=== PATIENT | female | born 2000 | race Caucasian/White ===

== ENCOUNTER 2025-09-07 13:35 | Emergency (ER) | payer OTHER, SELFPAY ==
[2025-09-07 13:47] VITALS: BP 115/80
[2025-09-07 13:54] LABS: Urine Character Clear (Clear)
[2025-09-07 14:07] LABS: Urine Red Blood Cell 0-2 /HPF (0-2)
--- NOTE | 2025-09-07 15:22 | ED.GENMED ---
History of Present Illness
General
Chief Complaint: Urinary Symptoms
Time Seen by Provider: 09/07/25 15:09
Nursing documentation reviewed up to this point in time: agreed with
History of Present Illness
History of Present Illness:
25-year-old female presents the ER for evaluation of dysuria, urinary frequency and back discomfort which have been ongoing for the past 3 days. Patient was seen in urgent care and initiated on ciprofloxacin. She has also been using Pyridium with
minimal change in her symptoms. She states that she was awakened early this morning with severe pain and feeling of spasm in her bladder. Patient states that she has been on antibiotics several times in the last few months due to recurrent
symptoms which she relates to urinary tract infection. This week was the first time she saw a in person provider-her previous prescriptions for Bactrim had been done via [facility]. Patient was also seen at [facility] and had her
IUD removed recently-she states that they also checked her for STIs at that time but was not advised of any positive test results. She denies vaginal discharge or dyspareunia. She had ureteral surgery when she was very young. She denies fevers.
She has been using ibuprofen intermittently for discomfort. She reports that she does not feel that she has been drinking much fluid and was feeling very nauseated when her pain was severe earlier this morning. No nausea currently. Pain was
present in the suprapubic region only.
Review of Systems
Review of Systems
Allergies reviewed?: Yes
Phy Exam
Physical Exam
Physical Exam:
Patient is awake, alert, appears in no acute distress, head is NCAT, PERRL, EOMI mucous membranes moist, conjunctiva pink, heart regular rate and rhythm without murmurs or ectopy, lungs are clear to auscultation without wheezes rales or rhonchi, no
JVD, abdomen is soft and nontender on palpation, negative CVA tenderness, extremities without edema, GCS is 15
Sepsis
Sepsis Screening
Sepsis Assessment: Sepsis Ruled Out
Sepsis Screen
Sepsis Screen: Sepsis Ruled Out
Date: 09/07/25
Time: 17:08
Course
Orders/Labs/Results
Orders:
Orders
09/07/25 13:46
Urinalysis Reflex To Culture Urgent
Date Specimen was Collected: 09/07/25
Time Specimen was Collected: 13:39
Urine Microscopic Reflex Cult Urgent
Urine Culture Urgent
SHLOMO Source: U
Specimen Description:
Date Specimen was Collected: 09/07/25
Time Specimen was Collected: 13:39
09/07/25 15:19
0.9% Sodium Chloride 1000 ml [Nss] 1,000 ml IV BOLUS
Test Result ONCE
09/07/25 15:20
CefTRIAXone [Rocephin] 1,000 mg IV NOW STA
09/07/25 15:22
Renal Only US [US Renal Only W/O Bladder] Urgent
Comment:
Reason For Exam: dysuria
09/07/25 15:33
Add On- LAB Urgent
Tests Added?: urine hcg qualitative
09/07/25 15:46
Basic Metabolic Panel Urgent
Complete Blood Count/With Diff Urgent
HCG, Serum Qualitative Screen Urgent
Abnormal Lab Results
09/07/25 09/07/25
13:46 15:46
RBC 4.00 L 10^6/uL
(4.20-5.40)
MCHC 32.2 L g/dL
(33.0-37.0)
MPV 12.0 H fL
(7.4-10.4)
Absolute Monos (auto) 0.7 H 10^3/uL
(0.1-0.6)
Sodium 134 L mmol/L
(135-145)
Urine Ketones 1+ A
(Negative)
Ur Occult Blood Reflex 2+ A
(Negative)
Urine Nitrite (Reflex) Positive A
(Negative)
Urine Bilirubin 3+ A
(Negative)
Urine Urobilinogen 3+ A
(Neg - 1+)
Leukocyte Esterase Rfl 2+ A
(Negative)
Urine WBC (Reflex) 11-15 A /HPF
(0-5)
Urine Bacteria (Reflex) Few A
(Negative)
Urine Albumin (Reflex) 2+ A
(Neg - Trace)
09/07/25 15:46
09/07/25 15:46
Urinalysis concerning for infection
Labs are otherwise reassuring.
Vital Signs
Initial and Last Documented VS:
Initial Vital Signs
Temp Pulse Resp BP Pulse Ox
98.4 F 106 18 115/80 97
09/07/25 13:47 09/07/25 13:47 09/07/25 13:47 09/07/25 13:47 09/07/25 13:47
Last Documented Vital Signs
Temp Pulse Resp BP Pulse Ox
98.4 F 106 18 115/80 97
09/07/25 13:47 09/07/25 13:47 09/07/25 13:47 09/07/25 13:47 09/07/25 15:22
MDM/Problems Addressed
Differential Diagnosis Includes:
Differential diagnosis considered but not limited to UTI, pyelonephritis, ureteral obstruction, kidney stones, interstitial cystitis along with other etiologies considered
*Radiology
Radiology exam reviewed: radiology read reviewed (No acute finding on renal ultrasound)
*Pulse Oximetry
SaO2: 97
Oxygen Mode of Delivery: Room air
Patient hypoxic: no
*Critical Care Note
Total Time (30-74mins, 75-104mins- exclusive of procedures): Not Applicable
Update Note
Update Note:
Given multiple recent UTIs and urinalysis still concerning for infection despite being on Cipro for the past 3 days, will check screening labs, give 1 dose of Rocephin and obtain ultrasound to rule out underlying pathology which may be related to
today's symptoms. Patient agrees with plan at current.
1700: Patient feeling much better after IV fluids. She tolerated IV Rocephin without any difficulty. I discussed with patient changing antibiotic to third-generation cephalosporin for discharge. I discussed with patient and significant other
present at bedside need to follow-up with urology, encourage oral fluids and complete current course of antibiotics. They expressed understanding of discharge instructions and have no questions at time.
ED Attending Note
-
Portions of this chart may have been created with voice recognition software.� Occasional wrong word or��sound alike� substitutions may have occurred due to the inherent limitations of voice recognition software.
Discharge Plan
Departure
Patient Disposition: Home (Routine Discharge)
Date of Disposition: 09/07/25
Time of Disposition: 17:04
Patient with high blood pressure during this ER visit?: No
Discharge Problem:
Urinary tract infection
Instructions: Urinary Tract Infection, Adult (DC)
Prescriptions:
New
cefpodoxime 200 mg tablet
200 mg PO BID 7 Days Qty: 14 0RF
Referrals:
Sterling Graham MD [Active, Urology] - Next open appointment
Deanna Garrison PA-C [Family Provider, General]
Activity Restrictions/Additional Instructions:
Encourage fluids. You need to be drinking at least eight 8 ounce glasses of water daily. Please contact urology office on Tuesday to schedule appointment for reevaluation and further care. Return to the ER for any concerns
Interventions
Interventions:
*Risk Screen - Suicide Last Done: 09/07/25 13:47
*General Assessment Last Done: 09/07/25 13:47
*Neglect/Abuse Screening Last Done: 09/07/25 13:47
*ED- Fall Risk Assessment Last Done: 09/07/25 15:38
*ED COVID-19 Vaccine History Last Done: 09/07/25 15:38
*ED Influenza Vaccine History Last Done: 09/07/25 15:38
ED-Female Genitourinary Assessment Last Done: 09/07/25 15:38
Discharge Date and Time
Print Language: [id number]
[2025-09-07 15:38] VITALS: BMI 21.5
[2025-09-07] MEDS: NSS 1000 IV (15:47)
[2025-09-07] MEDS: ROCEPHIN 1000 MG IV (15:48)
[2025-09-07 15:56] LABS: Hematocrit 37.6 % (37.0-47.0); Hemoglobin 12.1 g/dL (12.0-16.0); Mean Corp Hgb Conc. 32.2 g/dL (33.0-37.0); Mean Corpuscular Volume 94.0 fL (81.0-99.0); Nucleated Red Blood Cells % 0 %; Platelet Count 247 10^3/uL (130-400); Red Cell Dist. Width 12.8 % (11.5-14.5)
[2025-09-07 16:08] LABS: HCG, Serum Qualitative Screen Negative
[2025-09-07 16:10] LABS: Blood Urea Nitrogen 12 mg/dl (7-17); Calcium 9.3 mg/dl (8.4-10.2); Carbon Dioxide 27 mmol/L (22-30); Chloride 103 mmol/L (98-107); Estimated Creatinine Clearance 87 ml/min; Glucose 96 mg/dl (70-99); Potassium 4.0 mmol/L (3.5-5.1); Sodium 134 mmol/L (135-145); eGFR > 60.00
== END 2025-09-07 17:14 | disposition home or self-care (01) ==
LOC: EMR 13:35
PROVIDERS: Student in an Organized Health Care Education/Training Program; EMERGENCY PHYSICIAN Emergency Medicine; FAMILY PHYSICIAN Physician Assistant Medical
DX: N39.0 Urinary tract infection, site not specified (principal); N32.89 Other specified disorders of bladder
CPT/HCPCS: 96374; 96361; 99284; 76775; 80048; 81003; 81015; 84703; 85025; 87086